=== PATIENT | male | born 1955 | race Caucasian/White ===

== ENCOUNTER 2018-10-21 06:09 | Emergency (ER) | payer MEDICAID ==
[~2018-10-21] VITALS: Ht 175.3 cm; Wt 87.0 kg
[2018-10-21] MEDS ORDERED: HYDROCODONE/ACETAMINOPHEN 5/325MG TABLET PO ONE (07:15)
[2018-10-21] MEDS ORDERED: BACITRACIN ZINC OINT UDPKT TOP ONE (07:15)
[2018-10-21] MEDS ORDERED: ONDANSETRON 4MG ODT PO ONE (07:15)
[2018-10-21] MEDS ORDERED: TETANUS, DIPHTHERIA, PERTUSSIS VAC/PF 0.5ML (>7YR OLD) IM ONE (07:15)
[2018-10-21 10:15] VITALS: BP 127/81
== END 2018-10-21 10:53 | disposition home or self-care (01) ==
LOC: ER 06:09
DX: S22.018A Other fracture of first thoracic vertebra, initial encounter for closed fracture (principal); S09.8XXA Other specified injuries of head, initial encounter; V49.49XA Driver injured in collision with other motor vehicles in traffic accident, initial encounter; Y93.89 Activity, other specified; Y92.89 Other specified places as the place of occurrence of the external cause; Y99.8 Other external cause status
CPT/HCPCS: 70450; 70486; 71045; 72100; 72125; 72128; 72170; 73650; 90471; 90715; 99284; Q0162